=== PATIENT | female | born 1960 | race Caucasian/White ===

== ENCOUNTER 2016-08-27 07:07 | Observation (INO) | payer OTHER ==
[~2016-08-27 07:07] MED LIST: CEFAZOLIN 1 GM/DEXTROSE/50 ML BAG IV ONE; LIDOCAINE 1% 2 ML INJ ONE; cefOXitin SODIUM 1 GM in D5W 50 ML IV ONE
[2016-08-27] MEDS ORDERED: BUPIVACAINE 0.5% 30 ML SDV ONE (07:17)
[2016-08-27] MEDS ORDERED: SKIN ADHESIVE (DERMABOND) 1 EACH TP ONE (07:18)
[2016-08-27] MEDS ORDERED: MIDAZOLAM 2 MG/2 ML VIAL ONE (08:30)
[2016-08-27] MEDS ORDERED: fentaNYL 250 MCG/5 ML INJ ONE (08:32)
[2016-08-27] MEDS ORDERED: PROPOFOL 200 MG/20 ML VIAL ONE (08:33)
[2016-08-27] MEDS ORDERED: DEXAMETHASONE 4 MG/ML VIAL ONE (08:34)
[2016-08-27] MEDS ORDERED: ONDANSETRON 4 MG/2 ML VIAL ONE (08:34)
[2016-08-27] MEDS ORDERED: epHEDrine SULFATE 10 MG/ML SYR ONE (08:47)
[2016-08-27] MEDS ORDERED: HYDROmorphONE/DILAUDID 1 MG/ML SYR IVP PRN (10:51)
[2016-08-27] MEDS ORDERED: ONDANSETRON 4 MG/2 ML VIAL IVP PRN (10:51)
[2016-08-27] MEDS ORDERED: LR 1,000 ML IV SCH (11:00)
[2016-08-27] MEDS ORDERED: fentaNYL 100 MCG/2 ML INJ ONE (11:03)
--- NOTE | 2016-08-27 11:50 | GOP ---
[f rep st] OPERATIVE REPORT DATE OF OPERATION: 08/27/2016 SURGEON: Blake Tejada MD [employer] LAB[employer]ER: Dr. Fernandez, whose presence was requested by me and medically necessary for the safe and timely completion of this case. ANESTHESIA: General endotracheal anesthesia. ANESTHESIOLOGIST: Dr. Mark PREOPERATIVE DIAGNOSIS: Gastroesophageal reflux disease. POSTOPERATIVE DIAGNOSIS: Gastroesophageal reflux disease. PROCEDURE PERFORMED: Robotic/laparoscopic hiatal hernia repair and partial fundoplication surgeon. FINDINGS: Patient had a small to moderate hiatal hernia. No other lesions were identified. ESTIMATED BLOOD LOSS: 20 cc. INDICATIONS: A 56-year-old female with a history of reflux. Risks and benefits of the procedure were discussed with the patient and her family, their questions were answered, and they wished to proceed. DESCRIPTION OF PROCEDURE: The patient was in the supine position initially. After the induction of adequate general endotracheal anesthesia, the patient was moved to the modified lithotomy position. The patient was then prepped and draped in the standard surgical fashion. Marcaine 0.5% was injected throughout the supraumbilical area for local anesthesia. An 8-mm incision was made and the abdominal wall was elevated. A Veress needle was inserted and after noting proper pressures, the abdomen was insufflated with carbon dioxide. An 8-mm trocar was placed and a camera followed. There was no apparent damage from trocar placement. Four more ports were placed, three 8-mm ports in the upper abdomen and one 5-mm port in the right mid abdomen. These were all placed under direct vision after injecting 0.5% Marcaine for local anesthesia. The robot was then docked without difficulty. Robotic instruments were then used to perform the dissection. The Harmonic scalpel was used to take down the gastrohepatic ligament. Dissection was then carried over the esophagus exposing the right angie. The dissection proceeded laterally and the superior portion of the esophagus and the left angie were exposed. The vagus nerves were seen and preserved throughout the entire case. Next, the posterior window was opened using blunt dissection and the Harmonic scalpel. Once this window was achieved, attention was turned to the short gastrics. A significant portion of the short gastric vessels was taken down using a Harmonic scalpel. This freed up the fundus in its entirety. The mediastinal dissection was then performed. This was carefully performed using blunt dissection and minimal energy component. Once the entire visible portion of the esophagus was freed and the gastroesophageal junction returned to the abdomen, the repair of the hiatal hernia ensued. Interrupted sutures of 3-0 silk were used to approximate the hiatus posteriorly. Enough room was seen for the esophagus and an instrument tip. The fundus was then brought posteriorly to the esophagus and the wrap performed. A partial wrap was completed posteriorly. The fundus was anchored on either side of the angie. Bites were then taken of the esophagus and stomach to create a 270-degree posterior wrap. This was a loose floppy wrap. No other lesions were identified at this time. Good hemostasis was noted. The robot was then undocked. Trocars were removed under direct vision. The pneumoperitoneum was allowed to escape. The wounds were thoroughly irrigated. The skin at all sites was closed using 4-0 Monocryl in a subcuticular suture. Wounds were sterilely dressed and the patient was returned to the supine position and extubated. The patient was then taken to the PACU in stable condition. COMPLICATIONS: None. DRAINS: None. /[id number]/MODL MTDD
[2016-08-27] MEDS: OXYCODONE/APAP 5/325 TAB PO PRN ×2 (12:04→18:40)
[2016-08-28] MEDS: OXYCODONE/APAP 5/325 TAB PO PRN ×2 (00:26→07:55)
[2016-08-28 07:45] VITALS: BP 100/69; PULSE 65; RESP 16; TEMP 98.4; O2SAT 89
--- NOTE | 2016-08-28 11:04 | SOAPPROG ---
SOAP Progress Note Assessment/Plan: Assessment: Plan: 08/28/16 11:03 s/p DV fundoplication, doing well. Plan d/c. Restrictions, signs/symptoms of concern discussed. Questions answered. Subjective: Patient without complaints, minimal pain, any po. Ambulating, denies SOB. Objective: Vital Signs Temp Pulse Resp BP Pulse Ox 36.9 C 65 16 100/69 89 L 08/28/16 07:44 08/28/16 07:44 08/28/16 07:44 08/28/16 07:44 08/28/16 07:44 08/27/16 08/28/16 08/29/16 05:59 05:59 05:59 Intake Total 1200 Output Total 5 Balance 1195 Alert, NAD RRR Abd soft, [employer] C/D/I ICD10 Worksheet Patient Problems: Problems Problem Status Onset GERD (gastroesophageal reflux disease) Acute - ICD10 Problem Qualifiers (1) GERD (gastroesophageal reflux disease) Qualifiers: Esophagitis presence: E
== END 2016-08-28 11:32 | disposition home or self-care (01) ==
LOC: FSGY 07:07 → F3E 10:48
PROVIDERS: ADMIT Surgery; ATTEND Surgery
PROC: 0DV44CZ Restriction of Esophagogastric Junction with Extraluminal Device, Percutaneous Endoscopic Approach (ICD-10-PCS; principal; 2016-08-27 08:30)
PROC: 0BQS4ZZ (ICD-10-PCS; principal; 2016-08-27 08:30)
PROC: 0BQR4ZZ (ICD-10-PCS; principal; 2016-08-27 08:30)
DX: K44.9 Diaphragmatic hernia without obstruction or gangrene (principal); K21.0 Gastro-esophageal reflux disease with esophagitis
CPT/HCPCS: 43281; G0378; S2900; J0690; J0697; J1100; J2250; J2405; J2704; J3010